=== PATIENT | male | born 1955 | race Caucasian/White ===

== ENCOUNTER 2023-06-29 21:22 | Inpatient (IN) ==
[2023-06-29 22:19] LABS: Basophils # (auto) 0.06 K/uL (0-0.2); Basophils % (auto) 0.9 %; Eosinophils # (auto) 0.11 K/uL (0-0.50); Eosinophils % (auto) 1.7 %; Hematocrit (blood only) 47.8 % (42.0-52.0); Hemoglobin 16.7 g/dl (14.0-18.0); Immature Granulocytes # (auto) 0.04 K/uL (0.01-0.20); Immature Granulocytes % (auto) 0.6 %; Lymphocytes # (auto) 1.62 K/uL (1.2-3.4); Lymphocytes % (auto) 24.4 %; Mean Corpuscular Hemoglobin 31.2 pg (25.0-34.0); Mean Corpuscular Hgb Conc 34.9 g/dL (32.0-36.0); Mean Corpuscular Volume 89.3 fL (80.0-100.0); Mean Platelet Volume 9.4 fL (9.4-12.4); Monocytes # (auto) 0.58 K/uL (0.11-0.59); Monocytes % (auto) 8.7 %; Neutrophils # (auto) 4.24 K/uL (1.40-6.50); Neutrophils % (auto) 63.7 %; Platelet Count 220 K/uL (130-400); RDW Coefficient of Variation 12.8 % (11.5-14.5); RDW Standard Deviation 42.3 fL (36.4-46.3); Red Blood Count 5.35 M/uL (4.70-6.10); White Blood Count 6.65 K/ul (4.8-10.8)
[2023-06-29 22:32] LABS: INR 0.9 (0.9-1.1); Partial Thromboplastin Time 28.1 Seconds (21.0-31.0); Prothrombin Time 10.3 Seconds (9.0-12.0)
[2023-06-29 22:47] LABS: Albumin Globulin Ratio 1.6 (0.9-2); Albumin Level 4.7 gm/dl (3.4-5.0); BUN Creatinine Ratio 21.3 (10-20); Bilirubin,Total 0.8 mg/dl (0.2-1.0); Calcium 9.8 mg/dl (8.6-10.3); Creatinine Clr Calc Pharmacy 89.3 ml/min; Est GFR (African American) 101.1 ml/min; Est GFR (Non-African American) 87.2 ml/min; Globulin 2.9 gm/dl (2.5-4.0); Potassium 3.7 mmol/L (3.5-5.1); Total Protein 7.6 gm/dl (6.0-8.3)
[2023-06-29 22:53] LABS: Troponin I High Sensitivity 560.6 pg/ml (0-20)
[2023-06-29] MEDS ORDERED: NITROGLYCERIN SL 0.4 MG/TAB TAB SL STA (23:10)
[2023-06-29] MEDS ORDERED: ASPIRIN CHEW 324 MG PO STA (23:10)
[2023-06-29] MEDS ORDERED: Heparin IV Adult Wt-Based Standard WITH Bolus Protocol IV STA (23:20)
[2023-06-29] MEDS ORDERED: HEPARIN SOD (PORCINE) 1000 UNIT/ML IV STA (23:39)
[2023-06-29] MEDS: HEPARIN SODIUM/DEXTROSE 25,000 UNITS/500 ML BAG IV SCH (23:55)
[2023-06-29] MEDS ORDERED: METOPROLOL TARTRATE 25 MG TAB PO STA (23:55)
--- NOTE | 2023-06-29 23:56 | History & Physical Report ---
Date of Service June 29, 2023 Assessment & Plan (1) Acute non-ST elevation myocardial infarction (NSTEMI): Plan: hypertension, elevated upon arrival at the ER hx COPD, not in acute exacerbation GERD, stable on H2 silvia Hyperglycemia rule out DM past tobacco abuse PCU Aspirin for secondary CAD prevention Initiate beta-silvia Continue IV heparin initiated at the ER Trend troponin TTE, Cardiology consult Re: NSTEMI N.p.o. until patient seen by cardiology in anticipation of ischemic workup Check lipid profile and hemoglobin A1c DVT prophylaxis. IV heparin Full code Patient requesting updates from providers. Ms. Myriam Caruso, contact #[phone]. Text document was generated using [employer] voice recognition software. It may contain grammatical or spelling errors. Kindly contact undersigned for clarification of any documentation item in question. History of Present Illness Chief Complaint: Chest pain Primary Care Provider: Wei Walton PA-C of [facility] History obtained from patient, family, and records. Medical history significant for hypertension, COPD, GERD, osteoarthritis, past tobacco abuse. Four months history of intermittent substernal discomfort described as heaviness with arm radiation. No cough, no unusual shortness of breath. Does not seem to be related to exertion or food intake. Different from reflux. SBP 150s at home. No unusual stress at home. Patient seen at PCP's office last month. Outpatient cardiology eval recommended. Patient was walking today when he noted more intense and prolonged symptoms. No shortness of breath, nonpleuritic. Radiation to the neck and jaw. Denies back pain or headache symptoms. Patient brought to ER by . Symptoms improved with aspirin and nitroglycerin administration. IV heparin initiated at the ER. 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 Allergies Allergy/AdvReac Type Severity Reaction Status Date / Time JULISA Inhibitors AdvReac Mild Cough Verified 06/30/23 01:56 Home Medications Medication Instructions Recorded Confirmed Type acetaminophen 500 mg tablet 500 - 1,000 mg PO DIRECTED PRN 06/29/23 06/29/23 History Pain amlodipine 10 mg tablet 10 mg PO DAILY 06/29/23 06/29/23 History vrgjhcp-obyevuinivbyh-uxxliprl 250 1 tab PO DIRECTED PRN Pain 06/29/23 06/29/23 History mg-250 mg-65 mg tablet (Excedrin Extra Strength) famotidine 20 mg tablet 20 mg PO DAILY 06/29/23 06/29/23 History Past Med/Surg History Social History Smoking Status: Never smoker Second Hand Exposure: No; Do You Dip or Chew Tobacco: No; Tobacco Cessation Education Requested by Patient: No Hx Alcohol Use: No Hx Substance Use: No Preferred Language: Montserratian Communication Ability: Effective Legal Support Assistant Required: Voice Beliefs That Will Affect Care: None Current Living Situation: Spouse Other Information That Helps Us Care for You: No Feels Safe at Home: Yes Safety Concerns: Feels Safe At This Time Assistive Devices: None Review of Systems Review of Systems: As per HPI, all other systems reviewed and negative Physical Exam Physical Exam: GENERAL: Comfortable, pleasant, no respiratory distress SKIN: Normal color, warm HEENT: Bespectacled, [place] palpebral conjunctivae, no ptosis, moist buccal mucosa NECK : Supple, no tenderness CHEST : CTA, no tenderness HEART : RRR, no obvious murmurs ABDOMEN: no distention, nontender EXTREMITIES : No LE swelling/tenderness, no other conspicuous deformities noted NEUROLOGIC : Coherent, no facial asymmetry, no other gross focality Results & Data Results & Data Vital Signs (Past 12 Hours) Vital Signs Temp Pulse Pulse Resp BP BP Pulse Ox 06/29/23 23:04 77 06/29/23 23:22 77 15 146/100 H 95 06/29/23 22:53 95 06/29/23 22:53 81 16 151/87 H 95 06/29/23 21:25 36.5 C 85 20 183/110 H 96 O2 Del Method 06/29/23 23:04 06/29/23 23:22 Room Air 06/29/23 22:53 Room Air 06/29/23 22:53 Room Air 06/29/23 21:25 Room Air Laboratory Results Laboratory Results WBC 6.65 K/ul (4.8-10.8) 06/29/23 21:40 RBC 5.35 M/uL (4.70-6.10) 06/29/23 21:40 Hgb 16.7 g/dl (14.0-18.0) 06/29/23 21:40 Hct 47.8 % (42.0-52.0) 06/29/23 21:40 MCV 89.3 fL (80.0-100.0) 06/29/23 21:40 MCH 31.2 pg (25.0-34.0) 06/29/23 21:40 MCHC 34.9 g/dL (32.0-36.0) 06/29/23 21: RDW Std Deviation 42.3 fL (36.4-46.3) 06/29/23 21: RDW Coeff of Radha 12.8 % (11.5-14.5) 06/29/23 21: Plt Count 220 K/uL (130-400) 06/29/23 21: MPV 9.4 fL (9.4-12.4) 06/29/23 21:40 Immature Gran % (Auto) 0.6 % 06/29/23 21:40 Neut % (Auto) 63.7 % 06/29/23 21:40 Lymph % (Auto) 24.4 % 06/29/23 21:40 [place] % (Auto) 8.7 % 06/29/23 21:40 Eos % (Auto) 1.7 % 06/29/23:40 Baso % (Auto) 0.9 % 06/29/23:40 Neut # (Auto) 4.24 K/uL (1.40-6.50) 06/29/23 21:40 Lymph # (Auto) 1.62 K/uL (1.2-3.4) 06/29/23 21:40 [place] # (Auto) 0.58 K/uL (0.11-0.59) 06/29/23 21:40 Eos # (Auto) 0.11 K/uL (0-0.50) 06/29/23 21:40 Baso # (Auto) 0.06 K/uL (0-0.2) 06/29/23:40 Immature Gran # (Auto) 0.04 K/uL (0.01-0.20) 06/29/23 21:40 PT 10.3 Seconds (9.0-12.0) 06/29/23:40 INR 0.9 (0.9-1.1) 06/29/23 21:40 APTT 28.1 Seconds (21.0-31.0) 06/29/23 21:40 PTT Ratio 1.0 06/29/23 21:40 Sodium 138 mmol/L (136-145) 06/29/23 21:40 Potassium 3.7 mmol/L (3.5-5.1) 06/29/23 21:40 Chloride 102 mmol/L (98-107) 06/29/23 21:40 Carbon Dioxide 28 mmol/L (21-32) 06/29/23 21:40 Anion Gap 8 (3-11) 06/29/23 21:40 BUN 19 mg/dl (6-23) 06/29/23 21:40 Creatinine 0.89 mg/dl (0.6-1.4) 06/29/23 21:40 Est Cr Clr Drug Dosing 89.3 ml/min 06/29/23 21:40 Est GFR ( Amer) 101.1 ml/min 06/29/23 21:40 Est GFR (Non-Af Amer) 87.2 ml/min 06/29/23 21:40 BUN/Creatinine Ratio 21.3 (10-20) H 06/29/23 21:40 Glucose 126 mg/dl (70-99(Fasting)) H 06/29/23 21:40 Calcium 9.8 mg/dl (8.6-10.3) 06/29/23 21:40 Total Bilirubin 0.8 mg/dl (0.2-1.0) 06/29/23 21:40 AST 20 U/L (13-39) 06/29/23 21:40 ALT 17 U/L (7-52) 06/29/23 21:40 Alkaline Phosphatase 88 U/L (34-104) 06/29/23 21:40 Troponin I High Sens 560.6 pg/ml (0-20) H* 06/29/23 21:40 Total Protein 7.6 gm/dl (6.0-8.3) 06/29/23 21:40 Albumin 4.7 gm/dl (3.4-5.0) 06/29/23 21:40 Globulin 2.9 gm/dl (2.5-4.0) 06/29/23 21:40 Albumin/Globulin Ratio 1.6 (0.9-2) 06/29/23 21:40 Diagnostic Findings Chest x-ray as per my interpretation cardiomegaly EKG as per my interpretation : Rate 75, NSR, LAD, LAFB, incomplete RBBB, LVH, T wave inversions inferior leads
[2023-06-30] MEDS ORDERED: traMADol HCL 50 MG TABLET PO PRN (00:01)
[2023-06-30] MEDS ORDERED: NSS + 20MEQ KCL 20 MEQ/1,000 ML BAG IV ONE (00:01)
[2023-06-30] MEDS ORDERED: PROMETHAZINE HCL 12.5 MG in SODIUM CHLORIDE 0.9% 50 ML IV PRN (00:01)
[2023-06-30] MEDS ORDERED: LORazepam 0.5 MG TAB PO PRN (00:01)
[2023-06-30] MEDS ORDERED: MoRPHine SULFATE 4 MG/ML 1 ML CARP\\VIAL IV PRN (00:01)
--- NOTE | 2023-06-30 00:20 | Emergency Department Note ---
History of Present Illness General Chief complaint: Chest Pain Stated complaint: CHEST PAIN, ARM PAIN Time Seen by Provider: 06/29/23 23:01 History of Present Illness Maximum Pain Intensity: 4 This 67-year-old male presents to the ER complaining of chest pain that goes down both arms today that started around 5:30 PM that is worse with activity and better with rest. He has had intermittent pains for a while but this became more constant tonight. He is from [place] and is in town visiting family. No prior heart attack. He quit smoking 3 years ago. He is on a blood pressure pill but does not know the name of it. Patient denies dyspnea, abdominal pain, back pain, diaphoresis, leg pain or swelling. No history of blood clots. Home Medications Medication Instructions Recorded Confirmed Type acetaminophen 500 mg tablet 500 - 1,000 mg PO DIRECTED PRN 06/29/23 06/29/23 History Pain amlodipine 10 mg tablet 10 mg PO DAILY 06/29/23 06/29/23 History lhppnda-mjeptbajauptc-nyubrcfj 250 1 tab PO DIRECTED PRN Pain 06/29/23 06/29/23 History mg-250 mg-65 mg tablet (Excedrin Extra Strength) famotidine 20 mg tablet 20 mg PO DAILY 06/29/23 06/29/23 History Allergies Allergy/AdvReac Type Severity Reaction Status Date / Time No Known Allergies Allergy Verified 06/29/23 23:01 Past Med/Surg History Social History Smoking Status: Former smoker Preferred Language: Persian Feels Safe at Home: Yes Review of Systems A total of 10 systems reviewed and were otherwise negative Physical Exam Vital Signs Vital Signs - 24 hr 06/29/23 21:25 06/29/23 22:53 06/29/23 22:53 Temperature 36.5 C Temperature Source Temporal Artery Scan Pulse Rate 85 Pulse Rate [Apical] 81 Pulse Rhythm [Apical] Pulse Strength [Apical] Respiratory Rate 20 16 Respiratory Effort / Characteristics Non-Labored Spontaneous Respiratory Depth Normal Respiratory Pattern Blood Pressure 183/110 H Blood Pressure [Right Arm] 151/87 H Blood Pressure Mean 134 Blood Pressure Mean [Right Arm] 108 Blood Pressure Position [Right Arm] Semi-fowlers Pulse Oximetry 96 95 95 Oxygen Delivery Method Room Air Room Air Room Air Sepsis New/Unexplained Change in Mental Status N/A Sepsis Action Taken by Nursing No Action Required 06/29/23 23:22 06/29/23 23:04 06/30/23 00:33 Temperature Temperature Source Pulse Rate 77 Pulse Rate [Apical] 77 79 Pulse Rhythm [Apical] Regular Pulse Strength [Apical] Normal Respiratory Rate 15 16 Respiratory Effort / Characteristics Non-Labored Respiratory Depth Normal Respiratory Pattern Regular Blood Pressure Blood Pressure [Right Arm] 146/100 H 150/88 H Blood Pressure Mean Blood Pressure Mean [Right Arm] 115 108 Blood Pressure Position [Right Arm] Pulse Oximetry 95 94 Oxygen Delivery Method Room Air Room Air Sepsis New/Unexplained Change in Mental Status Sepsis Action Taken by Nursing VITALS: Vitals are noted on the nurse's note and reviewed by myself. Vital signs stable. GENERAL: Pleasant gentleman, in no acute distress, nondiaphoretic, well- developed well-nourished. SKIN: The skin was without rashes, erythema, edema, or bruising. There is no tenting of the skin. Capillary reflex less than 2 seconds. HEAD: Normocephalic atraumatic. EARS: External auditory canals clear EYES: Pupils equal round and reactive to light and accommodation. Conjunctivae without injection, sclerae without icterus. Extraocular movements intact. NOSE: Patent, turbinates without inflammation or discharge. MOUTH: Mucous membranes moist. Pharynx without erythema or exudate. Uvula midline. Airway patent. Tongue does not deviate. NECK: Supple without nuchal rigidity. No lymphadenopathy. No thyromegaly. Cervical spine is nontender. No JVD. HEART: Regular rate and rhythm LUNGS: Clear to auscultation bilaterally without wheezes, rales or rhonchi. No retractions or accessory muscle use. ABDOMEN: Positive bowel sounds x 4. Normal tympanic percussion. Soft, nontender, without masses or organomegaly. Cooper sign negative. No guarding or rebound tenderness. No CVA tenderness MUSCULOSKELETAL: No muscle atrophy, erythema, or edema noted. NEURO: Patient was alert and oriented to person place and time. Normal sensation to light and sharp touch. No focal neurological deficits. Course Administered Medications Heparin Sodium/Dextrose (Heparin Sodium/Dextrose) 25,000 units in 500 mls @ 29 mls/hr IV .[id number] [facility]; Protocol Stop: 07/29/23 23:44 Last Admin: 06/29/23 23:55 Dose: 1,450 units/hr, 29 mls/hr Documented By: VLADIMIR Co-signed By: CHRIS Potassium Chloride/Sodium Chloride (Normal Saline W/20 Meq Kcl) 20 meq in 1,000 mls @ 60 mls/hr IV .[id number] [facility]; Protocol Stop: 06/30/23 16:40 Last Admin: 06/30/23 00:18 Dose: 60 mls/hr Documented By: VLADIMIR Discontinued Medications Aspirin (Aspirin Chew 324 Mg) 324 mg PO NOW STA Stop: 06/29/23 23:11 Last Admin: 06/29/23 23:21 Dose: 324 mg Documented By: VLADIMIR Heparin Sodium (Porcine) (Heparin Sod (Porcine) 1000 Unit/Ml) 6,000 units IV NOW STA Stop: 06/29/23 23:40 Last Admin: 06/29/23 23:56 Dose: 6,000 units Documented By: VLADIMIR Co-signed By: CHRIS Heparin Sodium/Dextrose (Heparin Iv Adult Wt-Based Standard With Bolus Protocol) 1 each IV NOW STA; Protocol Stop: 06/29/23 23:21 Last Admin: 06/30/23 00:03 Dose: Not Given Documented By: VLADIMIR Metoprolol Tartrate (Metoprolol Tartrate 25 Mg Tab) 12.5 mg PO NOW STA Stop: 06/29/23 23:56 Last Admin: 06/30/23 00:18 Dose: 12.5 mg Documented By: VLADIMIR Nitroglycerin (Nitroglycerin Sl 0.4 Mg/Tab Tab) 0.4 mg SL NOW STA Stop: 06/29/23 23:11 Last Admin: 06/29/23 23:21 Dose: 0.4 mg Documented By: VLADIMIR Critical Care Time Critical Care Time: Yes Total Critical Care Time: 35 I have personally spent 35 minutes of critical care time in the direct management of this patient. This includes bedside care, interpretation of diagnostic studies, and testing, discussion with consultants, patient, and family members, and other required patient management activities. This 35 minutes is in excess of all separately billable procedures. Medical Decision Making Medical Records Attestation: I reviewed the patient's medical records. Home Medications Current Medication List: was personally reviewed by me Laboratory Data Attestation: I reviewed the patient's lab results. 06/29/23 21:40 06/29/23 21:40 Lab Results 06/29/23 06/29/23 06/29/23 Range/Units 21:40 21:40 21:40 WBC 6.65 (4.8-10.8) K/ul RBC 5.35 (4.70-6.10) M/uL Hgb 16.7 (14.0-18.0) g/dl Hct 47.8 (42.0-52.0) % MCV 89.3 (80.0-100.0) fL MCH 31.2 (25.0-34.0) pg MCHC 34.9 (32.0-36.0) g/dL RDW Std Deviation 42.3 (36.4-46.3) fL RDW Coeff of Radha 12.8 (11.5-14.5) % Plt Count 220 (130-400) K/uL MPV 9.4 (9.4-12.4) fL Immature Gran % (Auto) 0.6 % Neut % (Auto) 63.7 % Lymph % (Auto) 24.4 % [place] % (Auto) 8.7 % Eos % (Auto) 1.7 % Baso % (Auto) 0.9 % Neut # (Auto) 4.24 (1.40-6.50) K/uL Lymph # (Auto) 1.62 (1.2-3.4) K/uL [place] # (Auto) 0.58 (0.11-0.59) K/uL Eos # (Auto) 0.11 (0-0.50) K/uL Baso # (Auto) 0.06 (0-0.2) K/uL Immature Gran # (Auto) 0.04 (0.01-0.20) K/uL PT 10.3 (9.0-12.0) Seconds INR 0.9 (0.9-1.1) APTT 28.1 (21.0-31.0) Seconds PTT Ratio 1.0 Sodium 138 (136-145) mmol/L Potassium 3.7 (3.5-5.1) mmol/L Chloride 102 (98-107) mmol/L Carbon Dioxide 28 (21-32) mmol/L Anion Gap 8 (3-11) BUN 19 (6-23) mg/dl Creatinine 0.89 (0.6-1.4) mg/dl Est Cr Clr Drug Dosing 89.3 ml/min Est GFR ( Amer) 101.1 ml/min Est GFR (Non-Af Amer) 87.2 ml/min BUN/Creatinine Ratio 21.3 H (10-20) Glucose 126 H (70-99(Fasting)) mg/dl Calcium 9.8 (8.6-10.3) mg/dl Magnesium (1.7-2.4) mg/dl Total Bilirubin 0.8 (0.2-1.0) mg/dl AST 20 (13-39) U/L ALT 17 (7-52) U/L Alkaline Phosphatase 88 (34-104) U/L Troponin I High Sens 560.6 H* (0-20) pg/ml Total Protein 7.6 (6.0-8.3) gm/dl Albumin 4.7 (3.4-5.0) gm/dl Globulin 2.9 (2.5-4.0) gm/dl Albumin/Globulin Ratio 1.6 (0.9-2) 06/29/23 Range/Units 23:46 WBC (4.8-10.8) K/ul RBC (4.70-6.10) M/uL Hgb (14.0-18.0) g/dl Hct (42.0-52.0) % MCV (80.0-100.0) fL MCH (25.0-34.0) pg MCHC (32.0-36.0) g/dL RDW Std Deviation (36.4-46.3) fL RDW Coeff of Radha (11.5-14.5) % Plt Count (130-400) K/uL MPV (9.4-12.4) fL Immature Gran % (Auto) % Neut % (Auto) % Lymph % (Auto) % [place] % (Auto) % Eos % (Auto) % Baso % (Auto) % Neut # (Auto) (1.40-6.50) K/uL Lymph # (Auto) (1.2-3.4) K/uL [place] # (Auto) (0.11-0.59) K/uL Eos # (Auto) (0-0.50) K/uL Baso # (Auto) (0-0.2) K/uL Immature Gran # (Auto) (0.01-0.20) K/uL PT (9.0-12.0) Seconds INR (0.9-1.1) APTT (21.0-31.0) Seconds PTT Ratio Sodium (136-145) mmol/L Potassium (3.5-5.1) mmol/L Chloride (98-107) mmol/L Carbon Dioxide (21-32) mmol/L Anion Gap (3-11) BUN (6-23) mg/dl Creatinine (0.6-1.4) mg/dl Est Cr Clr Drug Dosing ml/min Est GFR ( Amer) ml/min Est GFR (Non-Af Amer) ml/min BUN/Creatinine Ratio (10-20) Glucose (70-99(Fasting)) mg/dl Calcium (8.6-10.3) mg/dl Magnesium 2.3 (1.7-2.4) mg/dl Total Bilirubin (0.2-1.0) mg/dl AST (13-39) U/L ALT (7-52) U/L Alkaline Phosphatase (34-104) U/L Troponin I High Sens 502.4 H* (0-20) pg/ml Total Protein (6.0-8.3) gm/dl Albumin (3.4-5.0) gm/dl Globulin (2.5-4.0) gm/dl Albumin/Globulin Ratio (0.9-2) Imaging Data Attestation: I personally reviewed and interpreted this imaging study as follows: MDM Narrative Prior records/ancillary studies reviewed. Triage Nursing notes reviewed. Additional history obtained from family. The patient's history was concerning for chest pain. Differential diagnosis: Etiologies such as cardiac ischemia, aortic dissection, pulmonary embolism, pneumonia, pneumothorax, musculoskeletal, infections, pericarditis, myocarditis, esophageal rupture, gastrointestinal, as well as others were entertained. Physical examination: As above. ER treatment provided: An order was placed for continuous cardiac monitoring. The monitor shows a rate of 60-100 with a sinus rhythm per my interpretation. Aspirin, nitroglycerin and heparin with bolus were ordered for NSTEMI On reassessment the patient felt better. Diagnostic interpretation by me: The electrocardiogram was Order for chest pain EKG: Normal sinus, normal intervals, minimal ST depression in 1 and aVL, rate of 75. Q waves in the inferior lead, impression normal sinus rhythm, Q waves in the inferior leads, minimal ST depression in lead I and aVL independently interpreted by myself I think arrhythmia is unlikely. EKG shows normal sinus rhythm with no interval abnormalities such as QT prolongation or WPW. There are no findings to suggest Brugada syndrome. Cardiac monitoring in the emergency department reveals no ta chycardic or bradycardic dysrhythmia. Hypertrophic cardiomyopathy was considered but there are no clear historical elements pointing toward this. EKG is not suggestive. The QRS voltage is not extremely large EKG #2 ordered for elevated troponin EKG: Normal sinus, Q waves in the inferior leads, normal intervals, no acute ST- T wave changes, rate of 72. Impression normal sinus rhythm Q waves in inferior leads independently interpreted by myself The labs Independently Interpreted by myself revealed elevated troponin and repeat was ordered Normal coags, mild hyperglycemia without DKA Imaging studies: Chest x-ray with no acute consolidation, pneumothorax or free air per my independent interpretation HEART SCORE: Hx: high/mod/low suspicion: 1 ECG: ST depression/nonspecific changes/normal: 1 Age: Greater than 65/45-64/less than 45: 1 Risk factors: (Hypertension, hyperlipidemia, diabetes, coronary disease, tobacco use, cocaine use): 1 Troponin: Greater than 2 times normal limits/1-2 times normal limits/normal: 2 Total: 6 Consultation: A consultation was placed with the hospitalist. The case was discussed and diagnostics were reviewed. The patient was evaluated in the ER for further treatment. Exam and history seem consistent with NSTEMI. Elevated troponin. No ST elevati on on EKG. Symptoms are exertional. Patient started on heparin and hospitalist was consulted. The case was discussed. Patient will be admitted to the medical service for further evaluation and treatment. Patient's pain was pretty much resolved with the nitroglycerin. Repeat EKG showed no ST elevation. Patient is agreeable treatment plan of admission. By the evaluation outlined above emergent etiologies such as aortic dissection, pulmonary embolism, pneumonia, pneumothorax, infections, gastrointestinal, as well as others were deemed relatively unlikely. The pt informed about the findings as listed above. All questions were answered and pleased with the treatment. The chart was completed utilizing [employer] voice recognition software. Grammatical errors, random word insertions, pronoun errors, and incomplete sentences are an occassional consequence of this system due to software limitations, ambient noise, and hardware issues. Any formal questions or concerns about the content, text, or information contained within the body of this dictation should be directly addressed to the physician assistant store manager sales for clarification. Impression & Plan Acute non-ST elevation myocardial infarction (NSTEMI) Discharge Plan Visit Data Chief Complaint: Chest Pain Stated Complaint: CHEST PAIN, ARM PAIN ED Provider: Virgen Sotelo ED Midlevel Provider: Shelby Alba Discharge Problem: Acute non-ST elevation myocardial infarction (NSTEMI) Patient Disposition: Admitted As Inpatient Condition: Good Forms Stand Alone Forms: [facility] [place] Perceptive Pixel Prescriptions Prescriptions: No Action acetaminophen [Tylenol Ex Str Rapid Release] 500 mg Tablet 500 - 1,000 mg PO DIRECTED PRN (Reason: Pain) famotidine 20 mg Tablet 20 mg PO DAILY amlodipine 10 mg Tablet 10 mg PO DAILY Excedrin Extra Strength 250-250-65 mg Tablet 1 tab PO DIRECTED PRN (Reason: Pain) Referrals Referrals: PCP,NO [Physician] -
[2023-06-30 00:39] LABS: Magnesium 2.3 mg/dl (1.7-2.4)
[2023-06-30 00:59] LABS: Troponin I High Sensitivity 502.4 pg/ml (0-20)
[2023-06-30] MEDS ORDERED: NITROGLYCERIN SL 0.4 MG/TAB TAB SL PRN (04:42)
[2023-06-30] MEDS ORDERED: ACETAMINOPHEN 325 MG TAB PO PRN (04:42)
[2023-06-30 06:40] LABS: Basophils # (auto) 0.06 K/uL (0-0.2); Basophils % (auto) 1.1 %; Eosinophils # (auto) 0.11 K/uL (0-0.50); Hematocrit (blood only) 43.6 % (42.0-52.0); Immature Granulocytes # (auto) 0.04 K/uL (0.01-0.20); Immature Granulocytes % (auto) 0.7 %; Lymphocytes # (auto) 1.26 K/uL (1.2-3.4); Mean Corpuscular Hemoglobin 30.5 pg (25.0-34.0); Mean Corpuscular Hgb Conc 34.4 g/dL (32.0-36.0); Mean Corpuscular Volume 88.8 fL (80.0-100.0); Mean Platelet Volume 9.2 fL (9.4-12.4); Monocytes # (auto) 0.52 K/uL (0.11-0.59); Monocytes % (auto) 9.5 %; Neutrophils % (auto) 63.7 %; Platelet Count 177 K/uL (130-400); RDW Standard Deviation 42.5 fL (36.4-46.3); Red Blood Count 4.91 M/uL (4.70-6.10); White Blood Count 5.49 K/ul (4.8-10.8)
[2023-06-30 06:50] LABS: BUN Creatinine Ratio 19.7 (10-20); Calcium 9.2 mg/dl (8.6-10.3); Chol HDL Ratio 2.4 (0-5); Est GFR (African American) 107.9 ml/min; Est GFR (Non-African American) 93.1 ml/min; Potassium 3.8 mmol/L (3.5-5.1)
[2023-06-30 07:01] LABS: Troponin I High Sensitivity 731.2 pg/ml (0-20)
--- NOTE | 2023-06-30 07:09 | Cardiology Consultation ---
Date of Consultation June 30, 2023 Assessment & Plan (1) Acute non-ST elevation myocardial infarction (NSTEMI): (2) Elevated troponin: (3) Hypertension: (4) Hyperlipidemia: Plan 67-year-old male with symptoms concerning for unstable angina. High-sensitivity troponins elevated Echocardiogram pending Patient will remain n.p.o. until evaluated by attending physician for possible heart catheterization. Continue cardiovascular risk reduction with IV heparin, aspirin and statin. Beta-silvia was started this admission. Will likely transition tartrate formulary to succinate upon discharge. Blood pressures controlled, continue amlodipine 10 mg daily. Please refer to physician addendum for further information and full plan of care. Supervising Physician Co-Signing Physician Notes Attending Staff: Pt seen and evaluated with AP Staff. Concur with observations and plans 67 yo man presenting with chest discomfort x 4 months Discomfort - exertional Improved with rest Tingling in bilateral upper extremities + Discomfort in throat Troponin elevated- peak 731 EKG: LVH, old IMI, TWI inferior leads ASCVD Risks: * HTN * Former Smoker (quit in 2019) * + Hyperlipidemia * No known DM * No known PVD Plans: * ECHOcardiogram -ordered and PENDING * Plans for Coronary Angiography * NPO except for meds * Continue ASA 81 mg po per day * Continue Heparin IV * Continue Lopressor 12.5 mg po BID * Consider transition to Toprol XL * LDL 70; target <55 * Crestor 20 mg po per day * SBP 135/88 * Stop Norvasc post cath * Consider JULISA/ARB post cath * K+ goal 4.5-5 * Mag++ goal >2 Nikolai Carbajal History of Present Illness Reason for Consultation: NSTEMI Requesting Physician: Ivonne hospitallinda Attending Physician: Amalia Giang MD History of Present Illness 67-year-old male presented to [facility] emergency department due to exertional chest discomfort/heaviness that started in February 2023. Occasionally patient will experience numbness and tingling in his upper extremities while he is having the chest discomfort. When he stops and rests symptoms improved. Symptoms not associated with dyspnea, nausea or vomiting, no diaphoresis. Patient was ordered a dobutamine stress echo scheduled to be completed on 07/18. In the emergency department patient was hypertensive. Patient was given aspirin and sublingual nitroglycerin with relief in symptoms. Started on IV heparin drip. Beta-silvia started. EKG showing a normal sinus rhythm with an incomplete right bundle branch block, T wave inversions in leads III and aVF. High-sensitivity troponin elevated: 560.6 >> 502.4>> 731.2. LDL 70 Echo pending. NO contrast dye allergy Upon entrance into the room patient resting comfortably in bed. He is currently chest pain-free. Has ambulated to the bathroom without discomfort. No shortness of breath. Denies palpitations lightheadedness or dizziness. States that he does have a history of GERD/indigestion but these are not like his normal symptoms. Blood pressures improved this morning. Telemetry revealing sinus rhythm with PACs in the 60s. Of note, his is a patient of mine also and she recently underwent CABG for similar symptoms. He is concerned regarding his current overall health. Past medical history Hypertension COPD GERD Osteoarthritis History of tobacco use, quit 2020 Allergies Allergy/AdvReac Type Severity Reaction Status Date / Time JULISA Inhibitors AdvReac Mild Cough Verified 06/30/23 01:56 Home Medications Medication Instructions Recorded Confirmed Type acetaminophen 500 mg tablet 500 - 1,000 mg PO DIRECTED PRN 06/29/23 06/29/23 History Pain amlodipine 10 mg tablet 10 mg PO DAILY 06/29/23 06/29/23 History kyebned-tuqnucfsgsmnu-gerpybty 250 1 tab PO DIRECTED PRN Pain 06/29/23 06/29/23 History mg-250 mg-65 mg tablet (Excedrin Extra Strength) famotidine 20 mg tablet 20 mg PO DAILY 06/29/23 06/29/23 History Patient History Social History Smoking Status: Never smoker Second Hand Exposure: No; Do You Dip or Chew Tobacco: No; Tobacco Cessation Education Requested by Patient: No Hx Alcohol Use: No Hx Substance Use: No Preferred Language: German Communication Ability: Effective Energy Project 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 Required: Voice Beliefs That Will Affect Care: None Current Living Situation: Spouse Other Information That Helps Us Care for You: No Feels Safe at Home: Yes Safety Concerns: Feels Safe At This Time Assistive Devices: None Review of Systems Review of Systems: All systems reviewed & are unremarkable except as noted in HPI & below Physical Exam Physical Exam: Pt awake, alert responsive No carotid bruits S1S2 2/6 systolic murmur (soft) CTA B 2/2 radial on right 1/2 Femoral on Left - no bruit No c/c/e Warm and perfusing Constitutional: WD/WN, vitals as above Eyes: PERRL, conjunctivae normal, anicteric sclerae Neck: normal visual inspection and trachea midline Respiratory: normal respiratory effort, lungs clear to auscultation Cardiovascular: RRR, no murmur, no edema Heart Sounds: normal S1 and normal S2; no murmur Vessels: no JVD Extremities: no edema Gastrointestinal (Abdomen): normal bowel sounds, soft, nontender, no hepatosplenomegaly Skin: no rashes, warm and dry Psychiatric: A+Ox3, euthymic affect Results & Data Vital Signs (Past 12 Hours) Vital Signs Temp Pulse Pulse Resp BP BP Pulse Ox 06/30/23 04:46 36.6 C 63 16 145/95 H 96 06/30/23 03:06 57 L 06/30/23 02:00 62 18 132/90 94 06/30/23 00:33 79 16 150/88 H 94 06/29/23 23:04 77 06/29/23 23:22 77 15 146/100 H 95 06/29/23 22:53 95 06/29/23 22:53 81 16 151/87 H 95 06/29/23 21:25 36.5 C 85 20 183/110 H 96 O2 Del Method 06/30/23 04:46 Room Air 06/30/23 03:06 06/30/23 02:00 Room Air 06/30/23 00:33 Room Air 06/29/23 23:04 06/29/23 23:22 Room Air 06/29/23 22:53 Room Air 06/29/23 22:53 Room Air 06/29/23 21:25 Room Air Laboratory Results Cardiac Enzymes 06/29/23 06/29/23 06/30/23 Range/Units 21:40 23:46 06:16 AST 20 (13-39) U/L Troponin I High Sens 560.6 H* 502.4 H* 731.2 H* D (0-20) pg/ml Coagulation 06/29/23 06/30/23 Range/Units 21:40 06:16 PT 10.3 (9.0-12.0) Seconds APTT 28.1 > 139.0 H* (21.0-31.0) Seconds Lipids 06/30/23 Range/Units 06:16 Triglycerides 45 (0-150) mg/dl Cholesterol 134 (0-200) mg/dl HDL Cholesterol 55 mg/dl Cholesterol/HDL Ratio 2.4 (0-5) CBC 06/29/23 06/30/23 Range/Units 21:40 06:16 WBC 6.65 5.49 (4.8-10.8) K/ul RBC 5.35 4.91 (4.70-6.10) M/uL Hgb 16.7 15.0 (14.0-18.0) g/dl Hct 47.8 43.6 (42.0-52.0) % Plt Count 220 177 (130-400) K/uL Neut # (Auto) 4.24 3.50 (1.40-6.50) K/uL Lymph # (Auto) 1.62 1.26 (1.2-3.4) K/uL Nye # (Auto) 0.58 0.52 (0.11-0.59) K/uL Eos # (Auto) 0.11 0.11 (0-0.50) K/uL Baso # (Auto) 0.06 0.06 (0-0.2) K/uL Comprehensive Metabolic Panel 06/29/23 06/30/23 Range/Units 21:40 06:16 Sodium 138 136 (136-145) mmol/L Potassium 3.7 3.8 (3.5-5.1) mmol/L Chloride 102 103 (98-107) mmol/L Carbon Dioxide 28 27 (21-32) mmol/L BUN 19 15 (6-23) mg/dl Creatinine 0.89 0.76 (0.6-1.4) mg/dl Glucose 126 H 125 H (70-99(Fasting)) mg/dl Calcium 9.8 9.2 (8.6-10.3) mg/dl AST 20 (13-39) U/L ALT 17 (7-52) U/L Alkaline Phosphatase 88 (34-104) U/L Total Protein 7.6 (6.0-8.3) gm/dl Albumin 4.7 (3.4-5.0) gm/dl Intake and Output 06/29/23 06/30/23 06/30/23 22:59 06:59 14:59 Intake Total 218.467 / 218.467 Balance 218.467 / 218.467 Intake: IV 218.467 / 218.467 Heparin Sodium/Dextrose 25,000 218.467 / 218.467 units In 500 ml @ 1,450 UNITS/ HR 29 mls/hr IV .[id number] [facility] Rx #:[id number] Other: Weight 92 kg 92.9 kg Weight Measurement Method Chair Scale Built in [facility] Medications Administered Current Inpatient Medications Acetaminophen (Acetaminophen 325 Mg Tab) 650 mg PO Q4H PRN PRN Reason: Pain or Fever Stop: 07/30/23 04:41 Amlodipine Besylate (Amlodipine Besylate 5 Mg Tab) 10 mg PO DAILY [facility] Stop: 07/30/23 08:59 Last Admin: 06/30/23 08:48 Dose: 10 mg Aspirin (Aspirin 81 Mg Ectab) 81 mg PO QAM [facility] Stop: 07/30/23 08:59 Last Admin: 06/30/23 08:48 Dose: 81 mg Famotidine (Famotidine 20 Mg Tab) 20 mg PO DAILY [facility] Stop: 07/30/23 08:59 Last Admin: 06/30/23 08:48 Dose: 20 mg Heparin Sodium/Dextrose (Heparin Sodium/Dextrose) 25,000 units in 500 mls @ 29 mls/hr IV .[id number] AXEL; Protocol Stop: 07/29/23 23:44 Last Titration: 06/30/23 07:27 Dose: 0 units/hr, 0 mls/hr Promethazine HCl 12.5 mg/ (Sodium Chloride) 50.5 mls @ 202 mls/hr IV Q6H PRN PRN Reason: Nausea And Vomiting Stop: 07/30/23 00:00 Potassium Chloride/Sodium Chloride (Normal Saline W/20 Meq Kcl) 20 meq in 1,000 mls @ 60 mls/hr IV .[id number] ONE; Protocol Stop: 06/30/23 16:40 Last Admin: 06/30/23 00:18 Dose: 60 mls/hr Lorazepam (Lorazepam 0.5 Mg Tab) 0.5 mg PO TID PRN PRN Reason: Anxiety Stop: 07/30/23 00:00 Metoprolol Tartrate (Metoprolol Tartrate 25 Mg Tab) 12.5 mg PO BID [facility] Stop: 07/30/23 08:59 Last Admin: 06/30/23 08:49 Dose: 12.5 mg Morphine Sulfate (Morphine Sulfate 4 Mg/Ml 1 Ml Carp\Vial) 4 mg IV Q4H PRN PRN Reason: Pain Stop: 07/14/23 00:00 Nitroglycerin (Nitroglycerin Sl 0.4 Mg/Tab Tab) 0.4 mg SL Q5M PRN PRN Reason: Chest Pain Stop: 07/30/23 04:41 Potassium Chloride (Potassium Chloride Crtab 20 Meq Tabcr) 40 meq PO NOW STA Stop: 06/30/23 09:19 Rosuvastatin Calcium (Rosuvastatin Calcium 20 Mg Tab) 20 mg PO HS AXEL Stop: 07/30/23 20:59 Tramadol HCl (Tramadol Hcl 50 Mg Tablet) 25 - 50 mg PO Q4H PRN PRN Reason: Pain Stop: 07/30/23 00:00
[2023-06-30 07:14] LABS: Partial Thromboplastin Ratio > 4.9
[2023-06-30 07:17] LABS: Partial Thromboplastin Time > 139.0 Seconds (21.0-31.0)
[2023-06-30 07:27] LABS: Estimated Average Glucose 108 mg/dl; Hemoglobin A1C 5.4 % (4.5-5.6)
--- NOTE | 2023-06-30 07:37 | XRay Report ---
SINGLE VIEW CHEST CLINICAL HISTORY: Atypical chest pain. FINDINGS: An AP, portable, upright chest radiograph is obtained. No prior studies are available for c omparison at the time of dictation. The heart is enlarged. The pulmonary vasculature is noncongested. Mild scarring/atelectasis is seen at the lung bases. The lungs and pleural spaces are otherwise devin r. No pneumothorax is seen. The skeletal structures are osteopenic. The bony thorax is grossly intact . IMPRESSION: Cardiomegaly with no active disease in the chest. ACT 112: Negative or not required by law. Electronically signed by: Ja Fernandez M.D. 06/30/2023 7:35 AM
--- NOTE | 2023-06-30 08:25 | Electrocardiogram Report ---
Test Reason : Blood Pressure : / mmHG Vent. Rate : 075 BPM Atrial Rate : 075 BPM P-R Int : 170 ms QRS Dur : 094 ms QT Int : 384 ms P-R-T Axes : -09 -18 -14 degrees QTc Int : 428 ms Normal sinus rhythm Incomplete right bundle branch block Minimal voltage criteria for LVH, may be normal variant Inferior infarct , age undetermined Abnormal ECG No previous ECGs available Confirmed by Shashank De La Paz ([id number]) on 06/30/2023 8:24:37 AM Referred By: REFERRED SELF Confirmed By:Dom De La Paz
[2023-06-30] MEDS: FAMOTIDINE 20 MG TAB PO SCH (08:48)
[2023-06-30] MEDS: ASPIRIN 81 MG ECTAB PO SCH (08:48)
[2023-06-30] MEDS: amLODIPine BESYLATE 5 MG TAB PO SCH (08:48)
[2023-06-30] MEDS: METOPROLOL TARTRATE 25 MG TAB PO SCH ×2 (08:49→20:37)
[2023-06-30] MEDS ORDERED: POTASSIUM CHLORIDE CRTAB 20 MEQ TABCR PO STA (09:18)
[2023-06-30] MEDS ORDERED: LIDOCAINE 1% LOCAL 20 ML VIAL ONE ×2 (10:34→11:25)
[2023-06-30] MEDS ORDERED: fentaNYL citrate PF 100 MCG/2 ML VIAL ONE (11:06)
[2023-06-30] MEDS ORDERED: niCARdipine HCL INJ 2.5 MG/ML 10 ML AMP ONE (11:06)
[2023-06-30] MEDS ORDERED: HEPARIN (PORCINE) 1000 UNIT/ML 10 ML (CATH LAB USE ONLY) ONE (11:06)
[2023-06-30] MEDS ORDERED: MIDAZOLAM HCL 1 MG/ML 2ML VIAL ONE (11:06)
[2023-06-30] MEDS ORDERED: NITROGLYCERIN/D5W 100MCG/ML 20ML SYR ONE (11:07)
--- NOTE | 2023-06-30 11:26 | Pre Anesthesia Assessment ---
Date of Service June 30, 2023 Pre Sedation Assessment Vital Signs Temp Pulse Pulse Resp BP BP Pulse Ox 06/30/23 07:27 36.5 C 64 20 135/88 94 06/30/23 04:46 36.6 C 63 16 145/95 H 96 06/30/23 03:06 57 L 06/30/23 02:00 62 18 132/90 94 06/30/23 00:33 79 16 150/88 H 94 06/29/23 23:04 77 06/29/23 23:22 77 15 146/100 H 95 06/29/23 22:53 95 06/29/23 22:53 81 16 151/87 H 95 06/29/23 21:25 36.5 C 85 20 183/110 H 96 O2 Del Method 06/30/23 07:27 Room Air 06/30/23 04:46 Room Air 06/30/23 03:06 06/30/23 02:00 Room Air 06/30/23 00:33 Room Air 06/29/23 23:04 06/29/23 23:22 Room Air 06/29/23 22:53 Room Air 06/29/23 22:53 Room Air 06/29/23 21:25 Room Air Cardiovascular RRR, no murmur, no edema Respiratory normal respiratory effort, lungs clear to auscultation Pre-Sedation Airway Assessment Smoking Status: Never smoker Mallampati 3 ASA 3 Notes The planned sedation has been discussed with the patient. Informed Consent was obtained. I have identified the patient, determined the appropriateness of sedation and have assessed the patient immediately prior to the procedure. All medicine(s) and interventions are by my order. [facility] Procedure Codes (Charges) Indication for Procedure Indication for procedure: NSTEMI
--- NOTE | 2023-06-30 12:12 | Post Anesthesia Assessment ---
Date of Service June 30, 2023 Post Sedation Assessment Vital Signs Temp Pulse Pulse Resp BP BP Pulse Ox 06/30/23 12:05 62 18 117/77 93 06/30/23 11:50 66 18 136/80 93 06/30/23 07:27 36.5 C 64 20 135/88 94 06/30/23 04:46 36.6 C 63 16 145/95 H 96 06/30/23 03:06 57 L 06/30/23 02:00 62 18 132/90 94 06/30/23 00:33 79 16 150/88 H 94 06/29/23 23:04 77 06/29/23 23:22 77 15 146/100 H 95 06/29/23 22:53 95 06/29/23 22:53 81 16 151/87 H 95 06/29/23 21:25 36.5 C 85 20 183/110 H 96 O2 Del Method 06/30/23 12:05 Room Air 06/30/23 11:50 Room Air 06/30/23 07:27 Room Air 06/30/23 04:46 Room Air 06/30/23 03:06 06/30/23 02:00 Room Air 06/30/23 00:33 Room Air 06/29/23 23:04 06/29/23 23:22 Room Air 06/29/23 22:53 Room Air 06/29/23 22:53 Room Air 06/29/23 21:25 Room Air Recovery Score Activity: Moves 4 extremities Respiration: Deep Breath/Cough Circulation: +/-20% PreAnes Value Consciousness: Fully Awake Oxygen Saturation: > 92% On Room Air Post Anesthesia Score: 10 Discharge Sedation Level of Care: Fast Track Phase II Post Sedation Plan On clinical assessment, the patient appears to have tolerated the sedation without complications. Patient is recovering as anticipated. Patient will continue to be monitored by nursing and may be discharged when sedation discharge criteria are met per below protocol. Upon Completions of procedure up to 15 minutes continue every 5 minute vital signs and the P.A.R. score; then discharge to a Phase I or Fast Track to Phase II per the following guidelines: * Discharge Patient to appropriate Phase II area if PAR is 8 or greater or return to pre- procedure baseline. The post - procedure orders will be as directed. * If PAR score is less than 8 or not return to pre-procedure baseline then patient will follow Phase I monitoring till PAR is reached for Phase II. The Phase I may be done in procedure room or may call to secure a Phase I area. * If naloxone or flumazenil are used for reversal, hold in Phase I for continued monitoring from when last reversal dose was given for a minimum of 60 minutes or longer pending the nurse and/or physician discretion of patient condition before discharge to Phase II. Please call the Sedation Physician to re-evaluate and complete post-note for discharge to Phase II area. Do NOT discharge from procedure sedation or Phase 1 until post- sedation evaluation note is complete by procedure /sedation MD Sedation Discharge Instructions to be given to the patient at discharge to home. [facility] Procedure Codes (Charges) Indication for Procedure Indication for procedure: Chest pain Elevated troponin Sedation/Anesthesia Procedure 1: Sedation/Anesthesia: 38333 Mod Sedation by the same physician;Init15 Min Child Age 5 & Up (Start time 1133, end time 1146) Total Sedation Time (minutes): 13
--- NOTE | 2023-06-30 12:26 | Hospitalist Progress Note ---
Date of Service June 30, 2023 Assessment & Plan (1) Acute non-ST elevation myocardial infarction (NSTEMI): Plan: 67-year-old male with PMH of HTN, COPD, GERD, osteoarthritis, past tobacco abuse [quit 3 years ago] presented to the ED with complaint of intermittent substernal discomfort ongoing for about 4 months, felt as heaviness with radiation to arm. On the day of arrival, he had intense and prolonged symptoms while walking and hence he presented to the ED. He has been managed for the following: NSTEMI Troponin elevated at presentation, up trended. LDL of 70 and A1c of 5.4. Admitting EKG with inferior infarct, age undetermined. Echo with EF of 55 to 60%, mild concentric LVH, no regional wall motion abnormalities noted. For heart cath today, cardiology on board, appreciate recommendation. Continue with baby aspirin daily, heparin drip, metoprolol, rosuvastatin. Monitor labs in AM. Hypertension: Blood pressure elevated at presentation, fairly under control now. Other chronic medical conditions: Continue with/resume home meds as and when appropriate. hx COPD, not in acute exacerbation GERD, stable on H2 silvia Hyperglycemia rule out DM past tobacco abuse DVT prophylaxis. On IV heparin Full code Patient Ms. Myriam Caruso, contact #[phone]. Admission and Anticipated Discharge Date Admission Date: June 29, 2023 Subjective Patient seen and examined at bedside as a follow-up of acute NSTEMI. Lying in bed, on room air, NAD, reports no further chest pain while in the hospital. Denies fever or chills or palpitation. Reports no acute problems with his bowel and bladder habits. Physical Exam Physical Exam: GENERAL: Alert and oriented x3. NAD, on RA. HEENT: No pallor, no icterus. Pupils equal, round and reactive to light. Oral mucosa moist. NECK: No JVD, no neck masses. HEART: S1 and S2 heard. Regular rate and rhythm. No murmur, no gallop. RESPIRATORY SYSTEM: Normal AP diameter. No accessory muscle use. No wheezing, no crackles. ABDOMEN: Soft, bowel sounds present, nontender, no distention. CENTRAL NERVOUS SYSTEM: No facial droop. Speech is clear. Obeys simple commands. Moves extremities. EXTREMITIES: No edema, no erythema seen. Results & Data Results & Data Vital Signs (Past 12 Hours) Vital Signs Temp Pulse Pulse Resp BP Pulse Ox O2 Del Method 06/30/23 12:05 62 18 117/77 93 Room Air 06/30/23 11:50 66 18 136/80 93 Room Air 06/30/23 07:27 36.5 C 64 20 135/88 94 Room Air 06/30/23 04:46 36.6 C 63 16 145/95 H 96 Room Air 06/30/23 03:06 57 L 06/30/23 02:00 62 18 132/90 94 Room Air 06/30/23 00:33 79 16 150/88 H 94 Room Air
--- NOTE | 2023-06-30 16:14 | Cardiac Catheterization ---
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 Probable chronic total occlusion) R PDA (% Stenosis): Proximal (Mild to moderate) and Normal R PL1 (% Stenosis): Normal Diagnostic Physicians Name: David Hedrick MD, PhD Closure Device Percutaneous Entry Location: Radial Closure Device: Radial Band Recommendations: Medical Therapy and/or Counseling Cardiac Cath Procedure Full Procedure Date June 30, 2023 Pre-Procedure Diagnosis Pre-Procedure Diagnosis: Non STEMI AUC Score AUC Score: 07 Post-Procedure Diagnosis Post-Procedure Diagnosis: Severe CAD Procedure(s) Performed Procedure(s) Performed: Coronary Angiography Night Cleaner David Hedrick MD, PhD Estimated Blood Loss Estimated Blood Loss: 5 mL Medication(s) Medication(s): Fentanyl, Heparin, Lidocaine 1%, Nicardipine, Nitroglycerin and Versed Summary of Findings Brief description: Patient was brought to the cardiac catheterization suite where he was shaved and prepped in a sterile fashion. Sedated using IV Versed and fentanyl. Soft tissues of the right wrist were anesthetized using 2 mils of 1% Xylocaine. The right radial artery was accessed with a modified Seldinger technique and a 6 Slovak radial artery glide sheath was placed. Patient was provided anticoagulation with IV heparin and antispasmodics including nicardipine and nitroglycerin. All catheters were advanced and exchanged over a 0.035 J-tip wire. Left coronary angiography was performed in orthogonal views with a 6 Slovak JL 4 diagnostic catheter. Right coronary angiography was performed in orthogonal views with a 5 Slovak [place] 4 diagnostic catheter. Diagnostic catheters were removed. Radial artery sheath was removed. Hemostasis was obtained using the TR band. Patient remained hemodynamically stable and asymptomatic. He was returned to the recovery area. This ended the case. Coronary angiography findings: LMT-this is a large caliber vessel which trifurcates into LAD, ramus, and circumflex. No angiographically significant disease. LAD-large caliber and transapical. Proximal segment has mild calcification and mild luminal irregularities. First diagonal is small to medium in caliber without significant disease. There is a large septal at this same level. The mid LAD is very short as the second diagonal originates shortly after the first diagonal. This vessel is large and branching. It has no more than mild scattered plaques. The distal LAD remains large all the way to the apex where it bifurcates. It has mild luminal irregularities and a short segment which is intramyocardial in its early portion. LCx-this is large caliber and nondominant. Travels in the AV groove where it provides a small caliber OM and 2 small caliber atrial branches. It then has mild plaque of less than 30% in the mid segment before it terminates as a large caliber branching OM 2. The OM 2 has mild scattered plaques. Ramus-this is large caliber and reaches towards the apex. No angiographically significant disease. RCA-this is large caliber and dominant. Proximal to mid vessel with diffuse disease which appears mild up to 30% at most. Then as it transitions from mid to distal vessel there is 100% occlusion. This area is mildly calcified as is the more proximal segment. The occlusion appears flush occurring at a branch point without any distal staining. The vessel clearly bifurcates into a large PDA and large branching posterior lateral. These vessels are seen on left coronary injection with relatively robust left to right collateralization. The PDA has proximal moderate stenosis. The most distal portion of the RCA is visualized but nothing is seen prior to that level. Summary: 1. Severe RCA stenosis. Most likely represents chronic total occlusion versus subacute total occlusion given that there is no clear thrombotic staining, flush occlusion at branch point, robust [id number] collateralization, prior EKG with evidence of old inferior infarction, and no inferior wall motion abnormalities on echocardiogram. As such, recommend optimized medical therapy for secondary prevention and up titration of antianginal regimen. If angina remained refractory then referral to tertiary center for PALLIATIVE CARE PHYSICIAN PCI. 2. Guideline directed medical therapy for secondary prevention of coronary disease to include aspirin, high intensity statin therapy, beta-silvia, plus or minus JULISA inhibitor/ARB. Hemodynamics Rest Ao:: 101/63 mmHg Final Ao: 142/88 mmHg LV: Not performed Recommendations Recommendations: Medical Therapy and/or Counseling Radiation Exposure (mGy) 805 mGy, fluoroscopy time 2.1 minutes Contrast (mls) 70 mL Anesthesia 1 mg IV Versed, 25 mcg IV fentanyl. Start time 1133, end time 1146 Procedural Complication(s) None Disposition Recovery Room\PACU I attest to the content of the Intraoperative Record and any orders documented therein. Any exceptions are noted below. [facility] Card Cath Procedure Codes Cardiac Catheterization Procedure 1: Cardiovascular Cath Procedures: 25399 Coronaries Moderate Sedation Procedure 1: Sedation/Anesthesia: 82845 Mod Sedation by the same physician;Init15 Min Child Age 5 & Up (Start time 1133, end time 1146) PG Care Time/CCT Total # of Minutes Spent Total Time Spent with Patient: Total time spent is greater than 50% in coordination of care (as documented) at patient's floor/unit and/or counseling patient:
[2023-06-30 19:02] LABS: Partial Thromboplastin Ratio 1.8
[2023-06-30 19:11] LABS: Partial Thromboplastin Time 51.3 Seconds (21.0-31.0)
[2023-06-30] MEDS: ROSUVASTATIN CALCIUM 20 MG TAB PO SCH (20:36)
[2023-06-30] MEDS ORDERED: ROSUVASTATIN CALCIUM 10 MG TAB PO SCH (21:00)
[2023-06-30] MEDS: HEPARIN SODIUM/DEXTROSE 25,000 UNITS/500 ML BAG IV SCH (21:43)
[2023-07-01 05:32] LABS: Hematocrit (blood only) 42.1 % (42.0-52.0); Hemoglobin 14.7 g/dl (14.0-18.0); Mean Corpuscular Hemoglobin 31.2 pg (25.0-34.0); Mean Corpuscular Hgb Conc 34.9 g/dL (32.0-36.0); Mean Corpuscular Volume 89.4 fL (80.0-100.0); Mean Platelet Volume 9.3 fL (9.4-12.4); Platelet Count 155 K/uL (130-400); RDW Coefficient of Variation 12.9 % (11.5-14.5); RDW Standard Deviation 42.4 fL (36.4-46.3); Red Blood Count 4.71 M/uL (4.70-6.10); White Blood Count 4.97 K/ul (4.8-10.8)
[2023-07-01 05:45] LABS: BUN Creatinine Ratio 20.9 (10-20); Calcium 9.2 mg/dl (8.6-10.3); Creatinine Clr Calc Pharmacy 92.8 ml/min; Est GFR (African American) 102.5 ml/min; Est GFR (Non-African American) 88.5 ml/min; Magnesium 2.2 mg/dl (1.7-2.4); Phosphorus 3.2 mg/dl (2.5-4.9)
[2023-07-01 05:56] LABS: Partial Thromboplastin Time 56.5 Seconds (21.0-31.0)
--- NOTE | 2023-07-01 07:42 | Cardiology Progress Note ---
Date of Service July 01, 2023 Assessment & Plan (1) Acute non-ST elevation myocardial infarction (NSTEMI): (2) Elevated troponin: (3) Hypertension: (4) Hyperlipidemia: Plan 67-year-old male with symptoms concerning for unstable angina. High-sensitivity troponins elevated Echocardiogram pending Patient will remain n.p.o. until evaluated by attending physician for possible heart catheterization. Continue cardiovascular risk reduction with IV heparin, aspirin and statin. B eta-silvia was started this admission. Will likely transition tartrate formulary to succinate upon discharge. Blood pressures controlled, continue amlodipine 10 mg daily. Please refer to physician addendum for further information and full plan of care. Admission and Anticipated Discharge Date Admission Date: June 29, 2023 Supervising Physician Co-Signing Physician Notes Attending Staff: Pt seen and evaluated with AP Staff. Concur with observations and plans 67 yo man presenting with chest discomfort x 4 months Discomfort - exertional Improved with rest Tingling in bilateral upper extremities + Discomfort in throat Troponin elevated- peak 731 EKG: LVH, old IMI, TWI inferior leads ASCVD Risks: * HTN * Former Smoker (quit in 2019) * + Hyperlipidemia * No known DM * No known PVD Coronary Angiography: 06/30/2023 CAD Presenation: Non STEMI Anginal Classification: CCS III Heart Failure: No Cardiogenic Shock within 24 Hours: No Cardiac Arrest within 24 Hours: No Imaging Studies Past 6 Months: No Coronary Anatomy Dominant: Right Left Main (% Stenosis): Normal LAD (% Stenosis): Proximal (Mild) D1 (% Stenosis): Normal D2 (% Stenosis): Normal Circumflex (% Stenosis): Normal OM1 (% Stenosis): Normal OM2 (% Stenosis): Normal (Mild scattered) RCA (% Stenosis): Proximal (Diffuse mild) and Mid (Mild then 100%. Probable chronic total occlusion) R PDA (% Stenosis): Proximal (Mild to moderate) and Normal R PL1 (% Stenosis): Normal ECHOcardiogram: 06/30/2023 LVEF 55-60% No WMA Mild LVH Mild MR Plans: * Pt S/P NSTEMI * No arrhythmias * No evidence of CHF * ECHOcardiogram -LVEF 55-60% - No WMA. Mild MR * Coronary Angiography - RCA 100% mid occlusion - fed via Left to Right Collaterals * Case D/W Bioinformatics Analyst - YOUTH CARE PROFESSIONAL of RCA (? Chronic) vs Acute on Chronic Component - suggested that he be evaluated by a YOUTH CARE PROFESSIONAL program * Continue ASA 81 mg po per day * Continue Heparin IV x 48 hrs * Start Plavix 75 mg po per day * STOP Lopressor 12.5 mg po BID * Start Toprol XL 25 mg po per day * LDL 70; target <55 * Crestor 20 mg po per day * SBP 151 mmHg * Continue Losartan 25 mg po per day * K+ goal 4.5-5 * Mag++ goal >2 * Given collaterals - consider Imdur 30 mg po per day - starting on 07/02/2023 * Cardiac Rehab * Follow up with [facility] - Zenia Carbajal Subjective Events Overnight: * Coronary Angiography (completed) * RCA - 100% mid - distal RCA fed via Left to Right Collaterals * No intervention - question of YOUTH CARE PROFESSIONAL * Heparin left on for 48 hrs * No arrhythmias overnight Subjective: Review of Systems Review of Systems: All systems reviewed & are unremarkable except as noted in HPI & below Physical Exam Physical Exam: Pt awake, alert responsive No carotid bruits S1S2 2/6 systolic murmur (soft) CTA B 2/2 radial on right - no hematoma No c/c/e Warm and perfusing Results & Data Vital Signs (Past 12 Hours) Vital Signs Temp Pulse Pulse Resp BP Pulse Ox O2 Del Method 07/01/23 07:00 51 L 07/01/23 03:48 36.5 C 63 18 160/72 H 94 Room Air 06/30/23 22:00 60 06/30/23 23:02 36.7 C 61 19 151/87 H 95 Room Air 06/30/23 20:37 83 148/83 H Laboratory Results Coagulation 06/30/23 07/01/23 Range/Units 17:46 05:18 APTT 51.3 H* 56.5 H* (21.0-31.0) Seconds CBC 07/01/23 Range/Units 05:18 WBC 4.97 (4.8-10.8) K/ul RBC 4.71 (4.70-6.10) M/uL Hgb 14.7 (14.0-18.0) g/dl Hct 42.1 (42.0-52.0) % Plt Count 155 (130-400) K/uL Comprehensive Metabolic Panel 08/12/23 Range/Units 05:18 Sodium 135 L (136-145) mmol/L Potassium 4.0 (3.5-5.1) mmol/L Chloride 105 (98-107) mmol/L Carbon Dioxide 26 (21-32) mmol/L BUN 18 (6-23) mg/dl Creatinine 0.86 (0.6-1.4) mg/dl Glucose 97 (70-99(Fasting)) mg/dl Calcium 9.2 (8.6-10.3) mg/dl Intake and Output 06/30/23 07/01/23 07/01/23 22:59 06:59 14:59 Intake Total 1281.533 / 1711.216 211.216 / 1711.216 Balance 1281.533 / 1711.216 211.216 / 1711.216 Intake: IV 1281.533 / 1711.216 211.216 / 1711.216 Heparin Sodium/Dextrose 25,000 281.533 / 711.216 211.216 / 711.216 units In 500 ml @ 1,150 UNITS/ HR 23 mls/hr IV .[id number] [facility] Rx #:[id number] Nss + 20Meq KCl 20 meq In 1,000 1000 / 1000 ml @ 60 mls/hr IV .[id number] Rx#:[id number] Other: # Unmeasured Voids 1 Weight 91.7 kg Weight Measurement Method Standing Scale Medications Administered Current Inpatient Medications Acetaminophen (Acetaminophen 325 Mg Tab) 650 mg PO Q4H PRN PRN Reason: Pain or Fever Stop: 07/30/23 04:41 Amlodipine Besylate (Amlodipine Besylate 5 Mg Tab) 10 mg PO DAILY [facility] Stop: 07/30/23 08:59 Last Admin: 06/30/23 08:48 Dose: 10 mg Aspirin (Aspirin 81 Mg Ectab) 81 mg PO QAM [facility] Stop: 07/30/23 08:59 Last Admin: 06/30/23 08:48 Dose: 81 mg Famotidine (Famotidine 20 Mg Tab) 20 mg PO DAILY [facility] Stop: 07/30/23 08:59 Last Admin: 06/30/23 08:48 Dose: 20 mg Heparin Sodium/Dextrose (Heparin Sodium/Dextrose) 25,000 units in 500 mls @ 23 mls/hr IV .[id number] [facility]; Protocol Stop: 07/29/23 23:44 Last Titration: 07/01/23 06:54 Dose: 1,150 units/hr, 23 mls/hr Promethazine HCl 12.5 mg/ (Sodium Chloride) 50.5 mls @ 202 mls/hr IV Q6H PRN PRN Reason: Nausea And Vomiting Stop: 07/30/23 00:00 Lorazepam (Lorazepam 0.5 Mg Tab) 0.5 mg PO TID PRN PRN Reason: Anxiety Stop: 07/30/23 00:00 Metoprolol Tartrate (Metoprolol Tartrate 25 Mg Tab) 12.5 mg PO BID [facility] Stop: 07/30/23 08:59 Last Admin: 06/30/23 20:37 Dose: 12.5 mg Morphine Sulfate (Morphine Sulfate 4 Mg/Ml 1 Ml Carp\Vial) 4 mg IV Q4H PRN PRN Reason: Pain Stop: 07/14/23 00:00 Nitroglycerin (Nitroglycerin Sl 0.4 Mg/Tab Tab) 0.4 mg SL Q5M PRN PRN Reason: Chest Pain Stop: 07/30/23 04:41 Rosuvastatin Calcium (Rosuvastatin Calcium 20 Mg Tab) 20 mg PO HS AX[facility] Stop: 07/30/23 20:59 Last Admin: 06/30/23 20:36 Dose: 20 mg Tramadol HCl (Tramadol Hcl 50 Mg Tablet) 25 - 50 mg PO Q4H PRN PRN Reason: Pain Stop: 07/30/23 00:00
[2023-07-01] MEDS: amLODIPine BESYLATE 5 MG TAB PO SCH (08:42)
[2023-07-01] MEDS: ASPIRIN 81 MG ECTAB PO SCH (08:42)
[2023-07-01] MEDS: METOPROLOL TARTRATE 25 MG TAB PO SCH (08:43)
[2023-07-01] MEDS: FAMOTIDINE 20 MG TAB PO SCH (08:43)
[2023-07-01] MEDS: CLOPIDOGREL BISULFATE 75 MG TAB PO SCH (12:37)
[2023-07-01] MEDS: METOPROLOL SUCC 25MG EXT REL TAB PO SCH (12:37)
--- NOTE | 2023-07-01 15:44 | Hospitalist Progress Note ---
Date of Service July 01, 2023 Assessment & Plan (1) Acute non-ST elevation myocardial infarction (NSTEMI): Plan: 67-year-old male with PMH of HTN, COPD, GERD, osteoarthritis, past tobacco abuse [quit 3 years ago] presented to the ED with complaint of intermittent substernal discomfort ongoing for about 4 months, felt as heaviness with radiation to arm. On the day of arrival, he had intense and prolonged symptoms while walking and hence he presented to the ED. He has been managed for the following: NSTEMI Troponin elevated at presentation, up trended. LDL of 70 and A1c of 5.4. Admitting EKG with inferior infarct, age undetermined. Echo with EF of 55 to 60%, mild concentric LVH, no regional wall motion abnormalities noted. Status post heart cath 06/30, severe RCA stenosis. Recommendation is medical therapy. GDMT for secondary prevention of coronary disease. Cardiology on board, aspirin daily, Plavix daily, heparin drip, metoprolol, rosuvastatin, losartan daily. Imdur from 07/02/2023. Discussed with cardiology, plan to monitor over telemetry today, possible discharge tomorrow. Monitor labs in AM. Hypertension: Blood pressure elevated at presentation, fairly under control now. Other chronic medical conditions: Continue with/resume home meds as and when appropriate. hx COPD, not in acute exacerbation GERD, stable on H2 silvia Hyperglycemia rule out DM past tobacco abuse DVT prophylaxis. On IV heparin Full code Patient Ms. Myriam Caruso, contact #[phone]. Admission and Anticipated Discharge Date Admission Date: June 29, 2023 Subjective Patient seen and examined at bedside as a follow-up of acute NSTEMI. Lying in bed, on room air, NAD, reports no further chest pain while in the hospital. Denies fever or chills or palpitation. Reports no acute problems with his bowel and bladder habits. Physical Exam Physical Exam: GENERAL: Alert and oriented x3. NAD, on RA. HEENT: No pallor, no icterus. Pupils equal, round and reactive to light. Oral mucosa moist. NECK: No JVD, no neck masses. HEART: S1 and S2 heard. Regular rate and rhythm. No murmur, no gallop. RESPIRATORY SYSTEM: Normal AP diameter. No accessory muscle use. No wheezing, no crackles. ABDOMEN: Soft, bowel sounds present, nontender, no distention. CENTRAL NERVOUS SYSTEM: No facial droop. Speech is clear. Obeys simple commands. Moves extremities. EXTREMITIES: No edema, no erythema seen. Results & Data Results & Data Vital Signs (Past 12 Hours) Vital Signs Temp Pulse Pulse Resp BP BP Pulse Ox 07/01/23 11:10 36.6 C 62 18 140/83 94 07/01/23 07:46 36.7 C 67 18 151/84 H 94 07/01/23 07:00 51 L 07/01/23 03:48 36.5 C 63 18 160/72 H 94 O2 Del Method 07/01/23 11:10 Room Air 07/01/23 07:46 Room Air 07/01/23 07:00 07/01/23 03:48 Room Air
[2023-07-01] MEDS: ROSUVASTATIN CALCIUM 20 MG TAB PO SCH (20:01)
[2023-07-02 06:19] LABS: BUN Creatinine Ratio 26.3 (10-20); Calcium 9.3 mg/dl (8.6-10.3); Creatinine Clr Calc Pharmacy 99.2 ml/min; Est GFR (African American) 105.6 ml/min; Est GFR (Non-African American) 91.1 ml/min; Magnesium 2.2 mg/dl (1.7-2.4); Phosphorus 3.3 mg/dl (2.5-4.9)
[2023-07-02 06:25] LABS: Partial Thromboplastin Time 28.6 Seconds (21.0-31.0)
--- NOTE | 2023-07-02 08:55 | Cardiology Progress Note ---
Date of Service July 02, 2023 Assessment & Plan Admission and Anticipated Discharge Date Admission Date: June 29, 2023 Supervising Physician Co-Signing Physician Notes Attending Staff: Pt seen and evaluated with AP Staff. Concur with observations and plans 67 yo man presenting with chest discomfort x 4 months Discomfort - exertional Improved with rest Tingling in bilateral upper extremities + Discomfort in throat Troponin elevated- peak 731 EKG: LVH, old IMI, TWI inferior leads ASCVD Risks: * HTN * Former Smoker (quit in 2019) * + Hyperlipidemia * No known DM * No known PVD Coronary Angiography: 06/30/2023 CAD Presenation: Non STEMI Anginal Classification: CCS III Heart Failure: No Cardiogenic Shock within 24 Hours: No Cardiac Arrest within 24 Hours: No Imaging Studies Past 6 Months: No Coronary Anatomy Dominant: Right Left Main (% Stenosis): Normal LAD (% Stenosis): Proximal (Mild) D1 (% Stenosis): Normal D2 (% Stenosis): Normal Circumflex (% Stenosis): Normal OM1 (% Stenosis): Normal OM2 (% Stenosis): Normal (Mild scattered) RCA (% Stenosis): Proximal (Diffuse mild) and Mid (Mild then 100%. Probable chronic total occlusion) R PDA (% Stenosis): Proximal (Mild to moderate) and Normal R PL1 (% Stenosis): Normal ECHOcardiogram: 06/30/2023 LVEF 55-60% No WMA Mild LVH Mild MR Plans: * Pt S/P NSTEMI * No arrhythmias * No evidence of CHF * ECHOcardiogram -LVEF 55-60% - No WMA. Mild MR * Coronary Angiography - RCA 100% mid occlusion - fed via Left to Right Co llaterals * Case D/W Imaging Administrator - SPECIAL LOAN OFFICER of RCA (? Chronic) vs Acute on Chronic Component - suggested that he be evaluated by a SPECIAL LOAN OFFICER program * Continue ASA 81 mg po per day * Heparin IV x 48 hrs (OFF) * Continue Plavix 75 mg po per day * Lopressor 12.5 mg po BID (OFF) * Continue Toprol XL to 25 mg po per day * LDL 70; target <55 * Continue Crestor 20 mg po per day * SBP 151 mmHg * Increase Losartan to 50 mg po per day * K+ goal 4.5-5 * Mag++ goal >2 * Given collaterals - continue Imdur 30 mg po per day - starting on 07/02/2023 * Please send patient with Rx for SL NTG * Cardiac Rehab * Follow up with [facility] - Zenia Samuels * Consider D/C Home with follow up Nikolai Carbajal Subjective Events overnight: Subjective: Review of Systems Review of Systems: All systems reviewed & are unremarkable except as noted in HPI & below Physical Exam Physical Exam: Pt awake, alert responsive No carotid bruits S1S2 2/6 systolic murmur (soft) CTA B 2/2 radial on right - no hematoma No c/c/e Warm and perfusing Results & Data Vital Signs (Past 12 Hours) Vital Signs Temp Pulse Pulse Resp BP BP Pulse Ox 07/02/23 07:00 55 L 07/02/23 07:18 36.7 C 92 H 18 153/89 H 94 07/02/23 04:06 36.7 C 63 15 138/75 95 07/01/23 21:59 58 L 07/01/23 23:16 36.6 C 65 19 146/77 H 94 O2 Del Method 07/02/23 07:00 07/02/23 07:18 Room Air 07/02/23 04:06 Room Air 07/01/23 21:59 07/01/23 23:16 Room Air Laboratory Results Coagulation 07/02/23 Range/Units 05:12 APTT 28.6 (21.0-31.0) Seconds Comprehensive Metabolic Panel 07/02/23 Range/Units 05:12 Sodium 135 L (136-145) mmol/L Potassium 4.0 (3.5-5.1) mmol/L Chloride 104 (98-107) mmol/L Carbon Dioxide 26 (21-32) mmol/L BUN 21 (6-23) mg/dl Creatinine 0.80 (0.6-1.4) mg/dl Glucose 91 (70-99(Fasting)) mg/dl Calcium 9.3 (8.6-10.3) mg/dl Intake and Output 07/01/23 07/02/23 07/02/23 22:59 06:59 14:59 Other: # Unmeasured Voids 1 1 Weight 91.7 kg Weight Measurement Method Standing Scale Medications Administered Current Inpatient Medications Acetaminophen (Acetaminophen 325 Mg Tab) 650 mg PO Q4H PRN PRN Reason: Pain or Fever Stop: 07/30/23 04:41 Amlodipine Besylate (Amlodipine Besylate 5 Mg Tab) 10 mg PO DAILY [facility] Stop: 07/30/23 08:59 Last Admin: 07/01/23 08:42 Dose: 10 mg Aspirin (Aspirin 81 Mg Ectab) 81 mg PO [facility] Stop: 07/30/23 08:59 Last Admin: 07/02/23 08:57 Dose: 81 mg Clopidogrel Bisulfate (Clopidogrel Bisulfate 75 Mg Tab) 75 mg PO [facility] Stop: 07/31/23 09:44 Last Admin: 07/02/23 08:58 Dose: 75 mg Famotidine (Famotidine 20 Mg Tab) 20 mg PO DAILY [facility] Stop: 07/30/23 08:59 Last Admin: 07/02/23 08:57 Dose: 20 mg Promethazine HCl 12.5 mg/ (Sodium Chloride) 50.5 mls @ 202 mls/hr IV Q6H PRN PRN Reason: Nausea And Vomiting Stop: 07/30/23 00:00 Isosorbide Mononitrate (Isosorbide [place] Extended Rel 30 Mg Tabcr) 30 mg PO [facility] Stop: 08/01/23 08:59 Last Admin: 07/02/23 08:58 Dose: 30 mg Lorazepam (Lorazepam 0.5 Mg Tab) 0.5 mg PO TID PRN PRN Reason: Anxiety Stop: 07/30/23 00:00 Losartan Potassium (Losartan Potassium 25 Mg Tab) 25 mg PO [facility] Stop: 08/01/23 08:59 Last Admin: 07/02/23 08:57 Dose: 25 mg Metoprolol Succinate (Metoprolol Succ 25mg Ext Rel Tab) 25 mg PO [facility] Stop: 07/31/23 09:44 Last Admin: 07/02/23 08:58 Dose: 25 mg Morphine Sulfate (Morphine Sulfate 4 Mg/Ml 1 Ml Carp\Vial) 4 mg IV Q4H PRN PRN Reason: Pain Stop: 07/14/23 00:00 Nitroglycerin (Nitroglycerin Sl 0.4 Mg/Tab Tab) 0.4 mg SL Q5M PRN PRN Reason: Chest Pain Stop: 07/30/23 04:41 Rosuvastatin Calcium (Rosuvastatin Calcium 20 Mg Tab) 20 mg PO [facility] Stop: 07/30/23 20:59 Last Admin: 07/01/23 20:01 Dose: 20 mg Tramadol HCl (Tramadol Hcl 50 Mg Tablet) 25 - 50 mg PO Q4H PRN PRN Reason: Pain Stop: 07/30/23 00:00
[2023-07-02] MEDS: ASPIRIN 81 MG ECTAB PO SCH (08:57)
[2023-07-02] MEDS: FAMOTIDINE 20 MG TAB PO SCH (08:57)
[2023-07-02] MEDS: METOPROLOL SUCC 25MG EXT REL TAB PO SCH (08:58)
[2023-07-02] MEDS: CLOPIDOGREL BISULFATE 75 MG TAB PO SCH (08:58)
[2023-07-02] MEDS ORDERED: LOSARTAN POTASSIUM 25 MG TAB PO SCH (09:00)
[2023-07-02] MEDS ORDERED: ISOSORBIDE MONO EXTENDED REL 30 MG TABCR PO SCH (09:00)
--- NOTE | 2023-07-02 12:21 | Discharge Summary ---
Date of Service July 02, 2023 Admission HPI Per Admitting Provider History obtained from patient, family, and records. Medical history significant for hypertension, COPD, GERD, osteoarthritis, past tobacco abuse. Four months history of intermittent substernal discomfort described as heaviness with arm radiation. No cough, no unusual shortness of breath. Does not seem to be related to exertion or food intake. Different from reflux. SBP 150s at home. No unusual stress at home. Patient seen at PCP's office last month. Outpatient cardiology eval recommended. Patient was walking today when he noted more intense and prolonged symptoms. No shortness of breath, nonpleuritic. Radiation to the neck and jaw. Denies back pain or headache symptoms. Patient brought to ER by . Symptoms improved with aspirin and nitroglycerin administration. IV heparin initiated at the ER. 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 NAD, on RA. HEENT: No pallor, no icterus. Pupils equal, round and reactive to light. Oral mucosa moist. NECK: No JVD, no neck masses. HEART: S1 and S2 heard. Regular rate and rhythm. No murmur, no gallop. RESPIRATORY SYSTEM: Normal AP diameter. No accessory muscle use. No wheezing, no crackles. ABDOMEN: Soft, bowel sounds present, nontender, no distention. CENTRAL NERVOUS SYSTEM: No facial droop. Speech is clear. Obeys simple commands. Moves extremities. EXTREMITIES: No edema, no erythema seen. Discharge Data Allergies Allergy/AdvReac Type Severity Reaction Status Date / Time JULISA Inhibitors AdvReac Mild Cough Verified 06/30/23 01:56 Consultations 06/29/23 23:30 ED Decision to Admit Stat 06/30/23 04:42 Consult Cardiology Routine Procedures Performed Operation Date: 06/30/23 11:00 Actual Procedures p Cath, Coronaries ONLY (no LV) - David Hedrick MD, PhD Ordered Studies 06/30/23 10:23 CL Cath Imgs for PACS use only Urgent Hospital Course (1) Acute non-ST elevation myocardial infarction (NSTEMI): 67-year-old male with PMH of HTN, COPD, GERD, osteoarthritis, past tobacco abuse [quit 3 years ago] presented to the ED with complaint of intermittent substernal discomfort ongoing for about 4 months, felt as heaviness with radiation to arm. On the day of arrival, he had intense and prolonged symptoms while walking and hence he presented to the ED. He was managed for the following: NSTEMI Troponin elevated at presentation, up trended. LDL of 70 and A1c of 5.4. Admitting EKG with inferior infarct, age undetermined. Echo with EF of 55 to 60%, mild concentric LVH, no regional wall motion abnormalities noted. Status post heart cath 06/30, severe RCA stenosis. Recommendation is medical therapy. GDMT for secondary prevention of coronary disease. Cardiology on board, aspirin daily, Plavix daily, metoprolol, rosuvastatin, losartan daily. Imdur from 07/02/2023. Off of heparin drip, patient moving around in the hallway with no chest pain. Discussed with cardiology, can DC today with close follow-up with cardiology. Patient is made aware. Monitor labs in a week time at PCP office. Hypertension: Blood pressure elevated at presentation, fairly under control now. Other chronic medical conditions: Continue with/resume home meds as and when appropriate. hx COPD, not in acute exacerbation GERD, stable on H2 silvia Hyperglycemia rule out DM past tobacco abuse DVT prophylaxis. On IV heparin Full code Patient Ms. Myriam Caruso, contact #[phone]. Patient being discharged home with following instruction at the point of discharge: Follow-up with your primary care physician within a week time and likely you will need labs CBC/CMP/magnesium/phosphorus. You were medically managed for "NSTEMI". Your medications has been optimized. Follow-up with your cardiology office in a month time. You will benefit from setting up with cardiac rehab upon discharge, coordinate with your cardiology office or PCP office. Measure your blood pressure twice a day, maintain a log to take to your primary care physician for further assessment/management of your blood pressure medications. Please make sure that you are able to get your medications today by calling your pharmacy before you leave the hospital so that your treatment continuity is not broken. Home Health Attestation I certify that this patient is under my care and that I, or a physicians temporary office assistant working with me, had a face to-face encounter that meets the home health [id number] encounter requirements with this patient. The encounter with the patient was in whole, or in part, for the following medical condition, which is the primary reason for home health care (list medical condition): I certify that, based on my findings, the following services are medically necessary home health services: My clinical findings support the need for the above services because: Further, I certify that my clinical findings support that this patient is homebound (i.e. absences from home require considerable and taxing effort and are for medical reasons or mormonism services or infrequently or of short duration when for other reasons) because: Certification for Home Health Services: Based on the above findings, I certify that this patient is confined to the home and needs intermittent jail care, physical therapy and/or speech therapy or continues to need occupational therapy. The patient is under my care, and I have initiated the establishment of the plan of care. This patient will be followed by a physician who will periodically review the plan of care. Total Time Total Time Spent Total Time Spent (In Minutes): 45 Discharge Plan Discharge Items Patient Disposition: Home - Self-Care Reason For Visit: ACS Discharge Diagnosis: NSTEMI Hypertension Condition on Discharge: Good Activity: Resume your previous activity Non-emergency contact: Primary Care Provider Call non-emergency contact if: you have any medication questions, your symptoms worsen, your pain is not controlled, your pain is worsening and your temperature is above 101 Follow-up/Referrals: Wei Walton PA-C [Primary Care Provider] - (Date & Time 07/05/2023 8:20 AM Provider Wei Walton PA-C Department [facility] ) Diet: Heart Healthy and Low Sodium (2gm) Addtl Attending Provider Instructions: Follow-up with your primary care physician within a week time and likely you will need labs CBC/CMP/magnesium/phosphorus. You were medically managed for "NSTEMI". Your medications has been optimized. Follow-up with your cardiology office in a month time. You will benefit from setting up with cardiac rehab upon discharge, coordinate with your cardiology office or PCP office. Measure your blood pressure twice a day, maintain a log to take to your primary care physician for further assessment/management of your blood pressure medications. Please make sure that you are able to get your medications today by calling your pharmacy before you leave the hospital so that your treatment continuity is not broken. Pending Studies at Discharge: No Stand-Alone Forms: My [facility], Smoking Cessation Medications and DC Order Prescriptions: New clopidogrel 75 mg Tablet 75 mg PO QAM Qty: 30 0RF isosorbide mononitrate 30 mg Tablet Extended Release 24 Hr 30 mg PO QAM Qty: 30 0RF losartan 50 mg Tablet 50 mg PO QAM Qty: 30 0RF metoprolol succinate 25 mg Tablet Extended Release 24 Hr 25 mg PO QAM Qty: 30 0RF rosuvastatin [Crestor] 20 mg Tablet 20 mg PO HS Qty: 30 0RF aspirin 81 mg Tablet,Delayed Release (Dr/Ec) 81 mg PO QAM Qty: 30 0RF Continued acetaminophen [Tylenol Ex Str Rapid Release] 500 mg Tablet 500 - 1,000 mg PO DIRECTED PRN (Reason: Pain) famotidine 20 mg Tablet 20 mg PO DAILY Excedrin Extra Strength 250-250-65 mg Tablet 1 tab PO DIRECTED PRN (Reason: Pain) Discontinued amlodipine 10 mg Tablet 10 mg PO DAILY Discharge Orders: Discharge Order (Routine); Ordered 07/02/23 Ordered By: Amalia Giang Admission Data Admit Date/Time: 06/29/23 23:58 Attending Provider: Amalia Giang Admit Provider: Eleazar Gray Primary Care Provider: Wei Walton Other Providers: Eleazar Gray ; Zenia De La Torre ; David Langford ; Nicolas Hancock ; Herber Nicole ; Giovanny Zapata ; Tyron Dennison ; Gia Diallo ; Claudia Fisher ; Zenia Samuels ; Ascencion Sanchez ; Brayan Rainey ; Nikolai Carbajal
[2023-07-03] MEDS ORDERED: LOSARTAN POTASSIUM 50 MG TAB PO SCH (09:00)
== END 2023-07-02 13:16 | disposition home or self-care (01) | DRG 282 ==
LOC: ED 21:22 → 2S 23:58 → SUATTDRO 23:58 → 2S 06-30 04:01
PROC: CLB.CCO (2023-06-30 11:00)